=== PATIENT | female | born 2000 | race Caucasian/White ===

== ENCOUNTER 2022-04-29 17:26 | Emergency (ER) | payer OTHER, BC, SELFPAY ==
--- NOTE | ~2022-04-29 | CT_ITS ---
EXAMINATION: CT HEAD WITHOUT CONTRAST CLINICAL INFORMATION: Complex migraines and TIA symptoms. COMPARISON: None TECHNIQUE: Contiguous axial imaging was performed from the skull base to vertex without intravenous administration of contrast. This CT examination was performed using dose optimization techniques as appropriate, variously including the following: *Automated exposure control *Adjustment of mA and/or kV according to patient size (this includes techniques or standardized protocols for targeted exams where dose is matched to indication/reason for exam; i.e. extremities or head) *Use of iterative reconstruction technique DLP: 809 mGy-cm FINDINGS: There is no evidence of acute intracranial hemorrhage or territorial infarction. No abnormal mass effect or midline shift is seen. Marie to white matter differentiation is well preserved. No extra-axial fluid collections are identified. No hydrocephalus. No significant volume loss. There is no abnormal attenuation within the brain parenchyma. No acute osseous or soft tissue abnormality. The mastoid air cells and visualized portions of the paranasal sinuses are well aerated. CT/CT head/brain wo IV con IMPRESSION: No acute intracranial pathology.
[2022-04-29 17:29] VITALS: BP 150/99; PULSE 97; RESP 18; TEMP 36.7; O2SAT 98; BMI 29.5
[2022-04-29 22:39] VITALS: BP 119/66; PULSE 78; RESP 18; TEMP 36.9; O2SAT 99
--- NOTE | 2022-04-29 22:51 | ED_ITS ---
HPI - Neuro Symptoms/Deficit General Chief Complaint: Neuro Symptoms/Deficit Stated Complaint: Arm numbness, unable to speak Time Seen by Provider: 04/29/22 22:36 Source: patient Mode of arrival: ambulatory Limitations: no limitations History of Present Illness HPI Narrative: Patient history of migraine for several years him here for headache mostly localized to the right frontal area associated with right hand numbness and expressive aphasia whole episode lasted for about 45 minute by to be terribly ER headache is almost gone and now no neurological symptoms Related Data Previous Rx's Medication Instructions Recorded jdlsljtawh-jbwlsczvkvrkz-havdphcc 1 cap PO Q6H PRN headache #20 caps 04/30/22 50 mg-300 mg-40 mg capsule (Fioricet) sumatriptan succinate 50 mg tablet 50 mg PO Q2H PRN migraine headache 04/30/22 (Imitrex) #10 tabs Allergies Allergy/AdvReac Type Severity Reaction Status Date / Time No Known Allergies Allergy Verified 04/29/22 17:32 Review of Systems Review of Systems: Yes all other systems are reviewed and are negative [facility] Social History Social History Advance Directives: No Advance Directives Information Provided: No Physical Exam Vital Signs: Vital Signs: Last Vital Signs Temp 98.1 F 04/29/22 23:27 Pulse 83 04/29/22 23:27 Resp 16 04/29/22 23:27 BP 106/70 04/29/22 23:27 Pulse Ox 98 04/29/22 23:27 O2 Del Method 04/29/22 23:27 BMI result Body Mass Index 29.5 Appearance: Alert. Oriented X3. No acute distress. Eyes: PERRLA, No Nystagmus ENT: Pharynx normal. Oral Mucosa moist Neck: Normal inspection. Neck supple. CVS: Normal heart rate and rhythm. Pulses normal. Respiratory: No respiratory distress. Equal air entry bilateral, no wheezing/rales/rhonchi Abdomen: Soft and nontender. Bowel sounds are present, no mass palpable, no CVA tenderness Skin: Skin warm and dry. Normal skin color. Normal skin turgor. Extremities: No lower extremity edema. No calf tenderness Neuro: Oriented X 3. No motor deficit. No sensory deficit.No cerebellar signs , cranial nerves II-XII intact NIHSS score 0 MDM - Neuro Symptoms/Deficit MDM Narrative Medical decision making narrative: 2249 Patient with complex migraine with right-sided paresthesia and expressive aphasia which have improved no neuro deficits at this time will get head CT as patient never had a CT head before [address] is negative now complaining of headache mostly on the left side does not want any injection will give her Fioricet and p.o. Imitrex Discharge Plan Discharge Clinical Impression: Migraine headache Patient Disposition: Home, Self-Care Instructions: Migraine Headache (ED) Additional Instructions: Rest at home Take Fioricet 1 tablet every 6 hours as needed for headache The symptoms were secondary to migraine Follow-up with neurology Prescriptions: New sumatriptan succinate [Imitrex] 50 mg tablet 50 mg PO Q2H PRN (Reason: migraine headache) Qty: 10 0RF Rx Instructions: do not exceed 2 doses per 24 hrs vjmrhcqfmy-zrtehxxqfjxbr-kfez [Fioricet] 50-300-40 mg capsule 1 cap PO Q6H PRN (Reason: headache) Qty: 20 0RF Referrals: Homero Edmonds MD [Physician] - 1 week
[2022-04-29 23:27] VITALS: BP 106/70; PULSE 83; RESP 16; TEMP 36.7; O2SAT 98
[2022-04-30] MEDS: Butalb/Acetamin/Caff 50/325/40 TABLET 1 TAB PO (01:10)
[2022-04-30] MEDS: SUMAtriptan succinate 50 MG TABLET PO (01:10)
== END 2022-04-30 01:28 | disposition home or self-care (01) ==
PROVIDERS: Emergency Provider Internal Medicine; PCP Pediatrics
DX: G43.909 Migraine, unspecified, not intractable, without status migrainosus (principal); Z79.899 Other long term (current) drug therapy
CPT/HCPCS: 70450; 99284

== ENCOUNTER 2025-02-13 08:21 | Outpatient (AMB) | payer OTHER, SELFPAY ==
--- OUTSIDE RECORDS SUMMARY | 2025-02-13 08:26 | XMS_ITS | Clinical Summary ---
Author Organization [facility] Address [address] [place] [phone] Phone Care Team Providers Care Power Supply Engineer Name Role Phone Marisa Tomlin MD Primary Care Provid er Allergies No known active allergies Medications adapalene (DIFFERIN) 0.1 % gel DIFFERIN; 0.1 %; 06/01/2016; Active 6 Active aluminum chloride (DRYSOL) 20 % external solution DRYSOL; Apply to affected areas once daily; 20 %; 11/16/2016; Active 7 Active hydrocortisone valerate 0.2 % cream HYDROCORTISONE VALERATE; apply by topical route 2 times every day to the affected area(s); 0.2 %; 02/15/2017; Active 7 Active cetirizine (ZYRTEC) 10 MG tablet Take 10 mg by mouth daily. Active SUMAtriptan (IMITREX) 50 MG tablet Take 50 mg by mouth every 2 (two) hours as needed for migraine. Not to exceed 200 mg/day Active ondansetron (ZOFRAN) 4 MG tablet Take 4 mg by mouth every 8 (eight) hours as needed for nausea. Active Hospital, Clinic, or Other Facility Administered Medication Ordered Dose Route Frequency Start Date End Date Status levonorgestreL (MIRENA) 21 mcg/24 hours (8 yrs) 52 mg intrauterine device 1 eachIndications:Encounter for insertion of intrauterine contraceptive device 1 each Utrn Every 7 years 11/09/2022 A ctive Active Problems Problem Noted Date Diagnosed Date Encounter for counseling regarding contraception 09/28/2022 Assessment & Plan (09/28/2022 12:16 PM EDT): Patient reports no personal history or current breast/ovarian cancer, VTE or thrombophilic disorders, stroke, heart disease, severe uncontrolled hypertension, liver tumors, smoking (> 1/2 ppd) and over age of 35. Patient does have documented history of migraines with aura which is a contraindication to estrogen containing contraceptives. Patient counseled regarding tiered effectiveness of contraceptive methods: Tier 1 methods (sterilization, nonhormonal IUD, hormonal IUD, and contraceptive implant) with less than 1% rate, Tier 2 methods (depo provera injection) with a 5-10% rate, and Tier 3 methods (barrier methods and spermicides or withdrawal) with a >10% rate. Patient counseled regarding effectiveness, duration of use, route of method/frequency of use, and changes in menstrual bleeding pattern with all types of contraceptive methods. Patient desires IUD. Insertion appointment requested. Encounters Date Type Department Care Team Description 12/31/2024 Transcribe Orders [facility] Department [address] [place] [id number] Tiffanie Slater DO Diffuse cystic mastopathy of right breast (Primary Dx) from Last 3 Months Immunizations Immunization Administration Dates Next Due COVID-19 (Pre-05/02) Moderna Vaccine, mRNA, PF 10/10/2020 Dtap, 5 Pertussis Antigens 09/06/2006,,02/25/2003,12/31,2002 [id number] FORMULATION 07/24/2009,06/10 HPV9 07/14/2021,01/28/2021 Hepatitis A, ped/adol, 2 dose 01/28/2021, 014 Hepatitis B 05/27/2003,2002,2002 Hib,PRP-T 11/25/2003, 3,2002,10/23 IPV 09/06/2006, 3,2002,10/23 Influenza Quadrivalent Intranasal 04/23/2014 Influenza Quadrivalent Prese rvative Free IM 07/14/2021,06/11/2020 Influenza Quadrivalent w/ Pr eservative IM 04/29/2015 Influenza Split (Incl. Purif ied Surface Antigen) 05/14/2013,04/04/2012,03/09/2011,03/11 Influenza Trivalent w/ Preservative IM 1 ,03/28/2007,04/19/2006,04/15,06/17/2003 Influenza, Unspecified Formulation 07/14/2020 MMR 08/27/2003 MMRV 09/06/2006 Meningococcal B, recombinant (MenB-FHbp) 01/25/2022,07/14/2021 Meningococcal MCV4P 01/09/2021,11/12/2013 Pneumococcal conjugate, PCV 7 08/28/2004 ,02/25/2003,2002,10/23 Tdap 10/15/2013 Unknown Vaccine Or Immune Globulin 08/27/2003 Varicella 08/27/2003 Family History Medical History Relation Comments No Known Problems Brother No Known Problems Father No Known Problems Maternal Aunt No Known Problems Maternal Grandfather No Known Problems Maternal Grandmother No Known Problems Maternal Uncle No Known Problems Mother No Known Problems Paternal Aunt No Known Problems Paternal Grandfather No Known Problems Paternal Grandmother No Known Problems Paternal Uncle No Known Problems Sister Cancer Neg Hx Clotting disorder Neg Hx Collagen disease Neg Hx Depression Neg Hx Diabetes Neg Hx Dislocations Neg Hx Gout Neg Hx Infl. arthritis Neg Hx Osteoporosis Neg Hx Scoliosis Neg Hx Relation Status Comments Brother Father Maternal Aunt Maternal Grandfather Maternal Grandmother Maternal Uncle Mother Paternal Aunt Paternal Grandfather Paternal Grandmother Paternal Uncle Sister Social History Tobacco Use Types Packs/Day Years Used Date Smoking Tobacco: Never Smokeless Tobacco: Never Tobacco Cessation:Counseling Given: Not Answered Alcohol Use Standard Drinks/Week Comments No 0 (1 standard drink = 0.6 oz pur e alcohol) Education Answer Date Recorded Are you interested in more education? Not on bernardino e 11/05/2022 Are you concerned about learning? Not on file 11/05/2022 No 11/05/2022 No 11/05/2022 Digital Access Answer Date Recorded No 12/03/2022 No 12/03/2022 Reliable internet access at home? Not on file 12/03/2022 Device with a working camera? Not on file Comments No Sex and Gender Information Value Date Recorded Sex Assigned at Not on file Legal Sex Female 8:45 PM EDT Gender Identity Not on file Sexual Orientation Not on file Last Filed Vital Signs Vital Sign Reading Time Taken Comments Blood Pressure 124/60 11/09/2022 2:19 PM EDT Pulse 108 09/18/2018 6:50 PM EDT Temperature 36.8 C (98.3 F) 09/18/2018 6:50 PM EDT Respiratory Rate - - Oxygen Saturation 95% 09/18/2018 6:50 PM EDT Inhaled Oxygen Concentration - - Weight 97.5 kg (215 lb) 09/28/2022 11:57 AM EDT Height 172.7 cm (5' 7.99 ) 11/09/2022 2:19 PM ED T Body Mass Index - - Plan of Treatment Health Maintenance Due Date Last Done Comments DEPRESSION SCREENING 2014 SMOKING Hx and SMOKELESS TOBACCO SCREENING 2015 HEPATITIS C SCREENING 2020 HIV ONE-TIME SCREENING (18-65 YEARS) 2020 HPV VACCINES (3 - 3-dose series) 10/06/2021 07/14/2021, 01/28/2021 PAP SMEAR 2023 CHLAMYDIA SCREENING 09/29/2023 09/28/2022 Adult Td,Tdap Booster 10/16/2023 10/15/2013 COVID-19 VACCINE ( season) 2024 07/09/2021, 11/05/2020, 10/10/2020 IUD 11/09/2030 11/09/2022 HIB VACCINES Completed 11/25/2003, 02/08, 2002, Additional history exists PNEUMOCOCCAL VACCINES (0-49 years) Aged Out 08/28/2004, 02/25/2003, 2002, Additional history exists No longer eligible based on patient's age to complete this topic MENINGOCOCCAL VACCINES (ACWY) Completed 01/09/2021, 11/12/2013 HEPATITIS A VACCINES Completed 01/28/2021, 11/13/19 14 MENINGOCOCCAL VACCINES (B) Completed 01/25/2022, Medical Devices Implanted Type Area Pupil Personnel Services Director Device Identifier Shelf Expiration Date Model / Serial / Lot Iud Implanted:08/2022 (Quantity not on file) Intrauterine Device Procedures Procedure Name Priority Date/Time Associated Diagnosis Comments CHLAMYDIA TRACHOMATIS AND NEISSERIA GONORRHOEAE NUCLEIC ACID DETECTION Routine 09/28/2022 12:58 PM EDT Routine screening for STI (sexually transmitted infection) from Last 3 Months or Most Recently Relevant to Health Maintenance Results * Chlamydia Trachomatis and Neisseria Gonorrhoeae Nucleic Acid Detection (09/28/2022 12:58 PM EDT) CHLAMYDIA TRACHOMATIS Not Detected Not Detected [facility] NEISERIA GONORRHOEAE Not Detected Not Detected [facility] SPECIMEN TYPE U [facility] Other (Endocervical) 09/28/2022 12:58 PM EDT 09/28/2022 3:21 PM EDT Renee Ramirez MD NON CULTURE [facility] Final Result Performing Organization Address City/State/[facility] Co de Phone Number [address] [phone] from Last 3 Months or Most Recently Relevant to Health Maintenance Insurance [facility] PPO BLUE CROSS OUT OF STATE PPO [facility] OUT [facility] PPO [facility] OUT [facility] PPO BLUE CROSS OUT OF STATE PPO BLUE [place] OUT OF STATE PPO BLUE [place] OUT OF STATE PPO [facility] OUT OF STATE PPO [facility] OUT [facility] PPO OUT [facility] PPO [facility] OUT [facility] [place] [address] [address] OUT [facility] [place] [address] [address] CROSS OUT OF STATE PPO [facility] OUT [facility] PPO [facility] OUT OF STATE PPO Care Teams Power Supply Engineer Relationship Specialty Start Date End Date Marisa Tomlin MD [address] [place] [address] PCP - General Pediatrics 05/16/17 Additional Source Comments The information contained in this document represents components of the legal health record. It is not the complete legal health record.[facility]
--- OUTSIDE RECORDS SUMMARY | 2025-02-13 08:26 | XMS_ITS | Encounter Summary ---
Author Organization [facility] Address [address] [place] [phone] Phone Care Team Providers Care Treatment Supervisor Name Role Phone Marisa Tomlin MD Primary Care Provider Encounter Details Date Type Department Care Team (Late st Contact Info) Description 12/29/2015 Documentation [facility] Family Medicine [address] [place] [address] Family Medicine, Physician [address] [place], [place] [id number] Social History Tobacco Use Types Packs/Day Years Used Date Smoking Tobacco: Never Comments:Never smoker Comments Unknown Sex and Gender Information Value Date Recorded Sex Assigned at Not on file Legal Sex Female 5:17 PM EDT Gender Identity Female 05/19/2023 11:05 AM EST Sexual Orientation Straight 05/19/2023 11 :05 AM EST documented as of this encounter Plan of Treatment Not on file documented as of this encounter Visit Diagnoses Not on filedocumented in this encounter Care Teams Treatment Supervisor Relationship Specialty Start Date End Date Marisa Tomlin MD [address] [place] [id number] PCP - General 02/18/17 10/06/23 documented as of this encounter
--- NOTE | 2025-02-13 08:28 | MHC.OFFVIS ---
Intake Visit Reasons: 1 yr follow up Accompanied by: Mother Allergies No Known Allergies Allergy (Verified 02/13/25 08:31) Medication List - Last Reconciled 02/13/25 by Mary Valle CNP albuterol sulfate 90 mcg/actuation (ProAir RespiClick) inhalation iobkqsusrc-wiltsjgmxsvkf-ooen 50-300-40 mg (Fioricet) 1 cap PO Q6H PRN lorazepam 1.25 mg PO DIRECTED ondansetron 4 mg PO DAILY PRN sumatriptan succinate (Imitrex) 50 mg PO Q2H PRN topiramate 25 mg PO DAILY HPI Comments Details: 24-year-old woman with migraine. She was doing okay. Migraines were controlled with topiramate. She was getting about 2-3 migraines/month with photophobia, sonophobia, and nausea. Sumatriptan and ondansetron as needed helped. Sleep was okay. [facility] Medical History (Updated 02/13/25 @ 08:30 by Mary Valle CNP) Migraine without aura Review of Systems Const Denies chills, Denies daytime sleepiness, Denies difficulty sleeping, Denies fatigue, Denies fever(s), Denies frequent falls, Reports headache(s), Denies increased appetite, Denies poor appetite, Denies snoring, Denies weakness, Denies weight gain and Denies weight loss Eyes Denies loss of vision ENT Denies vertigo, Denies dizziness and Reports headache(s) Card Denies chest pain at rest, Denies chest pain with activity, Denies syncope, Denies leg edema and Denies palpitations Resp Denies snoring GI Denies constipation, Denies heartburn, Denies diarrhea and Denies nausea Denies urinary frequency, Denies urinary incontinence and Denies urinary urgency Musc Denies abnormal gait, Denies numbness and Denies tingling Skin/Breast Denies dry skin and Denies rash Neuro Denies abnormal gait, Denies vertigo, Denies dizziness, Denies syncope, Denies frequent falls, Reports headache(s), Denies lack of coordination, Denies loss of vision, Denies memory loss, Denies numbness, Denies restless legs, Denies seizure-like activity, Denies tingling, Denies paresthesias, Denies tremor(s) and Denies weakness Psych Denies anxiety, Denies depression, Denies auditory hallucinations, Denies memory loss, Denies visual hallucinations and Denies suicidal ideation Endo Denies fatigue and Denies palpitations Physical Exam Const Other: General Appearance:? normal, in no acute distress. Skin:? no rashes, no significant birthmarks. Heart:? S1, S2 normal, no murmurs. Lungs:? clear anteriorly and posteriorly. Extremities:? no edema. Psych:? alert, oriented, cognitive function intact, cooperative with exam. Neuro Other: Mental Status:?Normal attention, orientation, memory and affect.? Cranial Nerves:?Pupils are equal, round and reactive to light. External occular muscles are intact. Visual lai are full. Face is symmetrical. Facial sensations are normal. Tongue is midline. Palate elevates symmetrically. Shoulder shrugging is normal. Hearing to bedside conversation is normal. Sensory Exam:?....? Coordination:?No ataxia,?no titubation.? Gait Exam: Within normal limits. Cerebellar Signs:?Boikkj-iy-hgyy and qsgs-nl-dcnq is normal.? Extrapyramidal System:?No tremor, rigidity with normal facial expressions.? Pronator Drift:?Not present.? Involuntary Movements:?No tremors seen.? Speech:?Normal.? Results Reviewed Results Reviewed: CT head WO at [facility] in Apr 2022: OK but slight asymmetry of ventricles, with right little larger Assessment & Plan Assessment & Plan (1) Migraine with aura: Code(s): G43.109 - Migraine with aura, not intractable, without status migrainosus Category: Medical Qualifiers: Status migrainosus presence: without status migrainosus Intractability: not intractable Qualified Code(s): G43.109 - Migraine with aura, not intractable, without status migrainosus Plan: Continue topiramate 25mg 1 tablet daily Continue sumatriptan 50mg 1 tablet as needed for migraine Continue ondansetron 4mg 1 tablet as needed for nausea/vomiting Medications: New topiramate 25 mg PO DAILY 90 tabs 3RF 90 days ondansetron 4 mg PO DAILY PRN 10 tabs 5RF nausea and vomiting 30 days sumatriptan succinate take 1 tab at onset of headache; if no relief may repeat 1 tab after at least 2 hrs; PO 10 tabs 5RF 30 days Discontinued sumatriptan succinate (Imitrex) do not exceed 2 doses per 24 hrs Discontinued Reason: Order 50 mg PO Q2H PRN 10 tabs 0RF migraine headache ondansetron Discontinued Reason: Order 4 mg PO DAILY PRN nausea Coding Level of Care Code Est Pt Level 3 (62918) Diagnoses Migraine with aura and without status migrainosus, not intractable G43.109 Status migrainosus presence: without status migrainosus Intractability: not intractable
== END 2025-02-13 08:39 | disposition home or self-care (01) ==
LOC: HO.HSM 08:22
PROVIDERS: PCP Pediatrics; Referring Provider Family Medicine; Visit Provider Registered Nurse
DX: G43.109 Migraine with aura, not intractable, without status migrainosus (principal)
CPT/HCPCS: 99213